=== PATIENT | male | born 1995 | race Caucasian/White ===

== ENCOUNTER 2019-08-02 15:43 | Emergency (ER) | payer BC ==
[~2019-08-02 15:43] MED LIST: Iopamidol 370 76% 100 ML VIAL ONE; Sodium Chloride 0.9% 1,000 ML BAG ONE
[2019-08-02 15:51] LABS: #Basophils 0.1 thou/uL (0.0-0.2); #Eosinphils 0.2 thou/uL (0.0-0.7); #Monocytes 0.4 thou/uL (0.11-0.59); #Neutrophils 2.4 thou/uL (1.40-6.50); %Basophils 1.7 % (0.0-1.0); %Eosinophils 4.3 % (0.0-10.0); %Lymphocytes 39.4 % (21.0-51.0); %Monocytes 7.7 % (0.0-10.0); Hemoglobin 16.8 g/dL (14.0-18.0); Mean Corpuscular Volume 87.6 fL (78.0-98.0); Mean Platelet Volume 7.5 fL (7.4-10.4); Platelet Count 176 thou/uL (130-400); RBC Distribution Width 11.2 % (11.5-14.5); Red Blood Cell (RBC) Count 6.01 mill/uL (4.70-6.10); White Blood Cell (WBC) Count 5.2 thou/uL (4.8-10.8)
[2019-08-02 16:08] LABS: ALT (SGPT) 37 U/L (8-55); AST (SGOT) 23 U/L (5-34); Albumin 4.8 g/dL (3.5-5.0); Alkaline Phosphatase 54 U/L (40-110); Anion Gap 15 mmol/L (10-20); BUN (Urea Nitrogen) 15 mg/dL (8.9-20.6); Bilirubin, Total 0.8 mg/dL (0.2-1.2); Calc. Creatinine Clearance 0 mL/min (70-130); Calcium 9.3 mg/dL (7.8-10.44); Carbon Dioxide 24 mmol/L (22-29); Chloride 107 mmol/L (98-107); Estimated GFR-MDRD 65; Globulin 2.5 g/dL (2.4-3.5); Glucose 103 mg/dL (70-105); Potassium 3.8 mmol/L (3.5-5.1); Protein, Total 7.3 g/dL (6.0-8.3); Sodium 142 mmol/L (136-145)
--- NOTE | 2019-08-02 16:55 | CT ---
CT BRAIN WITHOUT CONTRAST: 08/02/19 HISTORY: Trauma, headache. FINDINGS: No evidence of acute infarct, hemorrhage, midline shift, or abnormal extra-axial fluid collections ar e seen. The ventricular size is normal and the basilar cisterns are patent. The bony calvarium is int act. The visualized paranasal sinuses demonstrate mild mucosal disease. The mastoid air cells are yoan ar. IMPRESSION: No CT evidence of acute intracranial process. POS: [facility]
--- NOTE | 2019-08-02 17:07 | CT ---
CT Cervical Spine WO Con History: Trauma Comparison: None Findings: The odontoid process is intact. No acute displaced fracture or malalignment. No acute facet joint widening. Mastoids are relatively clear. Skull base is intact. The mandible is intact. Lung apices are clear. Posterior ribs are intact. Impression: No acute fracture or malalignment of the cervical spine.
--- NOTE | 2019-08-02 17:18 | CT ---
CT Chest Abd Pelvis W Con CT limited thoracic spine with contrast Limited CT lumbar spine without contrast History: Trauma Comparison: None Findings: Lungs are clear. No pneumothorax. No effusion. No pulmonary contusion or laceration. The ribs are intact. No acute displaced rib fracture. Sternum and manubrium are intact. No acute thoracic or lumbar vertebral fracture. The clavicles are intact. Scapula are intact. The ascending aorta measures up to 3.7 cm. No pericardial effusion. Kidneys are polycystic, some of these cysts have internal hemorrhage and proteinaceous debris. Liver, spleen, pancreas, adrenal glands are unremarkable. The aortoiliac contour is nonaneurysmal. Degenerative changes of the right inferior articular facet o f L3 is the appearance of fracture, although no fracture is appreciated. The transverse processes are intact including the lumbar spine transverse processes. The SI joints ar e normal. Pubic symphysis is normal. The ilium are intact. Paraspinal soft tissues are unremarkable. No mesenteric hematoma. No dilated loops of large or small bowel. There is trace perisplenic fluid without a laceration appreciated. Impression: 1. Trace perisplenic fluid without laceration or intraparenchymal hematoma appreciated may reflect a small contusion. Nonvisualized splenic injury is also possibility 2. Polycystic kidneys. 3. No other acute traumatic abnormality within the chest, abdomen, or pelvis. The left-sided ribs are intact. 4. Likely old injury of the sacrum at S5.
[2019-08-02 17:39] LABS: Bilirubin Negative (Negative); Blood, Urine Moderate (Negative); Glucose, Urine (Dipstick) Negative (Negative); Leukocyte Negative (Negative); Nitrite Negative (Negative); Protein, Urine (Dipstick) 30 mg/dL (Neg-Trace); Urobilinogen 0.2 mg/dL (Less than 2)
[2019-08-02 17:42] LABS: Clarity Hazy (Clear)
[2019-08-02 17:47] LABS: Bacteria/HPF Rare-Few HPF (None Seen); Squamous Epithelial 0-3 HPF (0-3); WBC/HPF 0-3 HPF (0-3)
== END 2019-08-02 18:25 | disposition home or self-care (01) ==
LOC: MADERS 15:43
DX: S36.029A Unspecified contusion of spleen, initial encounter (principal); V43.52XA Car driver injured in collision with other type car in traffic accident, initial encounter
CPT/HCPCS: 36415; 70450; 71260; 72125; 74177; 80053; 80307; 81003; 81015; 85025; 96360; J7050; Q9967